=== PATIENT | male | born 1955 | race Caucasian/White ===

== ENCOUNTER 2019-09-12 01:56 | Emergency (ER) | payer OTHER ==
[2019-09-12 02:03] VITALS: BP 137/88; PULSE 68; TEMP 97.4; BMI 27.3
[2019-09-12] MEDS ORDERED: SODIUM CHLORIDE 1,000 ML IV ONE (02:18)
[2019-09-12] MEDS ORDERED: morphine CARPU-JECT 4 MG/1 ML DISP.SYRIN IVPUSH ONE (02:18)
[2019-09-12] MEDS ORDERED: morphine SULFATE 4 MG/ML VIAL ONE (02:19)
--- NOTE | 2019-09-12 02:22 | PDOC ---
History of Present Illness - General Chief Complaint: Pain, Acute Stated Complaint: ABD PAIN Time Seen by Provider: 09/12/19 02:16 History Source: Patient Exam Limitations: No Limitations - History of Present Illness Initial Comments: 09/12/19 02:19 This is a 64-year-old male who comes in complaining of acute onset of severe diffuse abdominal pain. Patient has history of diabetes otherwise is healthy. Patient denies any nausea vomiting or diarrhea. Patient denies any fevers or chills. Patient denies any history of similar symptoms in the past. Patient denies any history of surgery on his belly in the past. Allergies: as per nursing notes Past Medical History: As per HPI Social history: Lives with family. No smoking. No alcohol. No illicit drugs. Surgical history: None General: No fevers or chills, no weakness, no weight loss HEENT: No change in vision. No sore throat,. No ear pain CardioVascular: no chest discomfort. No shortness of breath Respiratory:No cough, or wheezing. Gastrointestinal: no nausea, vomiting, diarrhea or constipation, No rectal bleeding, abdominal pain Genitourinary: No dysuria, hematuria, or frequency Musculoskeletal: No joint or muscle pain or swelling Neurologic: No headache, vertigo, dizziness or loss of consciousness Psychiatric: nor depression Skin: No rashes or easy bruising Endocrine: no increased thirst or abnormal weight change Allergic: no skin or latex allergy All other systems reviewed and normal Exam: General: Well-nourished well-developed individual, no acute distress HEENT: Throat: Normal, tonsils normal, no erythema or exudate Neck: Supple, no meningeal signs, no lymphadenopathy Eyes::Pupils equal reactive and round, extraocular motion intact Chest: Nontender to palpation Cardiac: S1-S2 normal, regular rate and rhythm, no murmurs rubs or gallops Respiratory: Lungs clear to auscultation bilateral Abdomen: Soft, sl distended, normal bowel sounds, there is tenderness on palpation diffusely, there is some voluntary guarding but no rebound. Bowel sounds are present but decreased. Extremities: Warm, dry, no cyanosis, clubbing, or edema Skin: No rashes Neuro: Alert and oriented x3, CN II - XII intact, nonfocal exam with normal strength, normal sensation, normal reflexes, normal gait, Psych: Normal mood and affect Assessment and plan: This is a 64-year-old male with abdominal pain. Patient has work-up initiated including CBC comp lipase and a CAT scan. Patient given IV fluids and morphine. 09/12/19 05:28 Patient felt much better after his fluids and morphine and his work-up was normal. However given the degree of pain that he came in I felt important that he get a CAT scan to rule out any acute process. Patient did receive a CAT scan but then did not want to wait for the results so he signed out AGAINST MEDICAL ADVICE. I do have a phone number and well notify the patient if there is any abnormality and he said he will come back. By signing out AGAINST MEDICAL ADVICE patient understood the risks including perforation, sepsis, disability, . 09/12/19 05:28 Past History - Past Medical History Allergies/Adverse Reactions: Allergies Allergy/AdvReac Type Severity Reaction Status Date / Time cefaclor [From Ceclor] Allergy Intermediate Hives Verified 11/03/14 08:57 Home Medications: Ambulatory Orders Aspirin [ASA -] 81 mg PO DAILY 11/02/14 metFORMIN HCL [Glucophage] 1,000 mg PO BID 11/02/14 Glipizide [Glipizide Xl] 2.5 mg PO BID 09/12/19 Anemia: No Asthma: No Cancer: No Cardiac Disorders: No CVA: No COPD: No CHF: No Dementia: No Diabetes: Yes GI Disorders: Yes (COLONIC POLYPS) Disorders: No HTN: No Hypercholesterolemia: Yes (NO MEDICATIONS) Liver Disease: No Seizures: No Thyroid Disease: No - Surgical History Abdominal Surgery: No Appendectomy: No Cardiac Surgery: No Cholecystectomy: No Lung Surgery: No Neurologic Surgery: No Orthopedic Surgery: Yes (BILATERAL HAND SURGERY) - Psycho Social/Smoking Cessation Hx Smoking History: Unknown if ever smoked Have you smoked in the past 12 months: No Number of Cigarettes Smoked Daily: 0 If you are a former smoker, when did you quit?: 1985 Information on smoking cessation initiated: No Hx Alcohol Use: Yes Drug/Substance Use Hx: No Substance Use Type: Alcohol Hx Substance Use Treatment: No *Physical Exam - Vital Signs Last Vital Signs Temp Pulse Resp BP Pulse Ox 97.4 F L 68 18 137/88 100 09/12/19 02:00 09/12/19 02:00 09/12/19 02:00 09/12/19 02:00 09/12/19 02:00 ED Treatment Course - LABORATORY CBC & Chemistry Diagram: 09/12/19 02:30 09/12/19 02:30 Discharge - Discharge Information Problems reviewed: Yes Clinical Impression/Diagnosis: Abdominal pain Qualifiers: Abdominal location: generalized Qualified Code(s): R10.84 - Generalized abdominal pain Condition: Stable Disposition: AGAINST MEDICAL ADVICE - Admission No - Follow up/Referral - Patient Discharge Instructions Additional Instructions: You are leaving AGAINST MEDICAL ADVICE by leaving AGAINST MEDICAL ADVICE, but leaving AGAINST MEDICAL ADVICE you understand that there is a possibility that your symptoms will worsen as a result you could have a perforation of the bowel , sepsis, disability and . Return to the emergency department immediately with ANY new, persistent or worsening symptoms. Continue any medications as previously prescribed by your physician. You should follow up with your primary doctor as soon as possible regarding today's emergency department visit. . Please make sure your doctor reviews the results of your emergency evaluation. Thank you for coming to the Emergency Department today for your care. It was a pleasure to see you today. Please note that your evaluation is INCOMPLETE until you follow-up with your doctor. - Post Discharge Activity
[2019-09-12 03:25] LABS: PH,URINE 5.5 (5.0-8.0); URINE APPEARANCE CLEAR; URINE BILIRUBIN NEGATIVE (NEGATIVE); URINE COLOR YELLOW; URINE GLUCOSE (UA) NEGATIVE (NEGATIVE); URINE KETONE TRACE (NEGATIVE); URINE LEUK ESTERASE NEGATIVE (NEGATIVE); URINE NITRITE NEGATIVE (NEGATIVE); URINE PROTEIN NEGATIVE (NEGATIVE); URINE UROBILINOGEN 0.2 mg/dL (0.2-1.0)
[2019-09-12 03:26] LABS: BASO % 0.5 % (0-2.0); EOS % 2.7 % (0-4.5); HEMATOCRIT 43.6 % (35.4-49); HEMOGLOBIN 14.7 GM/dL (11.7-16.9); LYMPH % 46.8 % (8-40); MCH 32.5 pg (25.7-33.7); MCHC 33.8 g/dl (32.0-35.9); MEAN CELL VOLUME 96.2 fl (80-96); MONO % 9.3 % (3.8-10.2); NEUT % 40.7 % (42.8-82.8); PLATELET COUNT 202 K/MM3 (134-434); RBC 4.53 M/mm3 (4.00-5.60); RDW 12.8 % (11.9-15.9)
[2019-09-12 03:52] LABS: ALBUMIN 3.8 g/dl (3.4-5.0); BILIRUBIN,TOTAL 0.4 mg/dL (0.2-1); BLOOD UREA NITROGEN 16.8 mg/dL (7-18); CALCIUM 9.1 mg/dL (8.5-10.1); CREATININE 1.1 mg/dL (0.55-1.3); POTASSIUM 3.8 mmol/L (3.5-5.1); TOT PROT 6.8 g/dl (6.4-8.2)
== END 2019-09-12 05:27 | disposition left against medical advice (07) ==
LOC: FER 01:56
PROC: 3E033NZ Introduction of Analgesics, Hypnotics, Sedatives into Peripheral Vein, Percutaneous Approach (ICD-10-PCS; principal; 2019-09-12)
DX: R10.84 Generalized abdominal pain (principal); E11.9 Type 2 diabetes mellitus without complications; E78.00 Pure hypercholesterolemia, unspecified; K92.9 Disease of digestive system, unspecified; Z87.891 Personal history of nicotine dependence; Z88.8 Allergy status to other drugs, medicaments and biological substances
CPT/HCPCS: 36415; 74177-TC; 80053; 81003; 82550; 82962; 83690; 84484; 85025; 96374; 99283-25; J7030; Q9967

== ENCOUNTER 2024-04-01 05:10 | Emergency (ER) | payer OTHER ==
[2024-04-01 05:16] VITALS: BP 142/82; PULSE 95; RESP 18; TEMP 98.1; BMI 24.2
[2024-04-01 06:42] LABS: HEMATOCRIT 41.8 % (35.4-49); HEMOGLOBIN 14.2 GM/dL (11.7-16.9); MCH 32.9 pg (25.7-33.7); MCHC 33.9 g/dl (32.0-35.9); MEAN PLT VOLUME 7.6 fl (7.5-11.1); PLATELET COUNT 177 10^3/uL (134-434); WHITE BLOOD COUNT 6.7 K/mm3 (4.0-10.0)
[2024-04-01 07:06] LABS: POTASSIUM 4.8 mmol/L (3.5-5.1)
[2024-04-01 07:07] LABS: CALCIUM 9.2 mg/dL (8.5-10.1)
[2024-04-01 07:08] LABS: ALBUMIN 3.9 g/dl (3.4-5.0); BLOOD UREA NITROGEN 24.7 mg/dL (7-18)
[2024-04-01 07:11] LABS: CREATININE 1.1 mg/dL (0.55-1.3)
[2024-04-01 07:13] LABS: BILIRUBIN,TOTAL 0.8 mg/dL (0.2-1)
[2024-04-01 08:24] LABS: URINE APPEARANCE Clear; URINE BILIRUBIN Negative (NEGATIVE); URINE COLOR Yellow; URINE GLUCOSE (UA) Negative (NEGATIVE); URINE KETONE Negative (NEGATIVE); URINE LEUK ESTERASE Negative (NEGATIVE); URINE NITRITE Negative (NEGATIVE); URINE PROTEIN Negative (NEGATIVE); URINE UROBILINOGEN 0.2 mg/dL (0.2-1.0)
[2024-04-01 09:26] LABS: EPI CELLS 2 /uL (0-25.1); HYALINE CASTS 0 /uL (0-3.1); URINE BACTERIA 3 /uL (0-1359); URINE RBC 12 /uL (0-23.9); URINE WBC 8 /uL (0-25.8)
== END 2024-04-01 08:29 | disposition home or self-care (01) ==
LOC: FER 05:10
DX: R68.83 Chills (without fever) (principal)
CPT/HCPCS: 36415; 80053; 81003; 85027; 87086; 99283-25

== ENCOUNTER 2025-05-31 14:10 | Emergency (ER) | payer OTHER ==
[2025-05-31 14:34] VITALS: RESP 20; BMI 23.8
[2025-05-31] MEDS ORDERED: PIPERACILLIN/TAZOBACTAM 4.5 GM VIAL IVPB ONE (15:43)
[2025-05-31 15:47] LABS: ABSOLUTE IMMATURE GRANULOCYTES 0.01 x10^3/uL (0.0-0.031); BASOPHILS # 0.02 x10^3/uL (0.01-0.08); EOSINOPHIL % 2.0 % (0.8-7.0); EOSINOPHILS # 0.13 x10^3/uL (0.04-0.54); MCHC 33.1 g/dl (32.3-36.5); MEAN CELL VOLUME 98.2 fl (79.0-92.2); MEAN PLT VOLUME 9.3 fl (9.4-12.4); MONOCYTE # 0.54 x10^3/uL (0.30-0.82); MONOCYTE % 8.4 % (5.3-12.2); RDW 12.4 % (12.2-16.6)
[2025-05-31] MEDS: PIPERACILLIN/TAZOB 4.5 GM 4.5 GM in DEXTROSE 5%-WATER 100 ML IVPB ONE (15:50)
[2025-05-31] MEDS ORDERED: VANCOMYCIN 1,000 MG VIAL (RESTRICTED TO ID ONLY) ONE (16:00)
[2025-05-31 16:22] LABS: ALK PHOS 52.0 U/L (45-117); CO2 27.0 mmol/L (21-32); CREATININE 1.0 mg/dl (0.6-1.3); GLUCOSE,RANDOM 155.0 mg/dl (74-106); SGOT/AST 13.0 U/L (15-37); SGPT/ALT 12.0 U/L (7-52); TOT PROT 7.0 g/dl (6.4-8.2)
[2025-05-31 16:29] LABS: ERYTHROCYTE SEDIMENTATION RATE 17 mm/hr (0-20)
[2025-05-31] MEDS: VANCOMYCIN 1 GM PREMIX (F) 1 GM/200 ML BAG IVPB ONE (16:48)
[2025-05-31 17:25] LABS: HCV DIAGNOSTIC IN-HOUSE W/RFLX NON-REACTIVE (NONREACTIVE); HIV INTERPRETATION NEGATIVE (NEGATIVE)
[2025-05-31 20:11] VITALS: BP 130/85; PULSE 56; TEMP 97.5
== END 2025-05-31 20:31 | disposition home or self-care (01) ==
LOC: FER 14:10
DX: E10.621 Type 1 diabetes mellitus with foot ulcer (principal); L97.511 Non-pressure chronic ulcer of other part of right foot limited to breakdown of skin; M79.89 Other specified soft tissue disorders
CPT/HCPCS: 36415; 73660-TC-FY; 80053; 85025; 85651; 86140; 86803; 87389; 96365; 96368; 99284-25